=== PATIENT | female | born 1950 | race Hispanic/Latino ===

== ENCOUNTER 2017-07-21 14:13 | Emergency (ER) | payer SELFPAY ==
[2017-07-21 14:22] VITALS: BP 160/80; PULSE 88; RESP 18; TEMP 97.7; O2SAT 97
--- NOTE | 2017-07-21 15:37 | ED PDOC ---
Upper Extremity Pain/Injury Time Seen by Provider: 07/21/17 15:44 Chief Complaint (Nursing): Upper Extremity Problem/Injury History Per: Patient, Family (daughter) History/Exam Limitations: no limitations Onset/Duration Of Symptoms: Days Current Symptoms Are (Timing): Still Present Additional Complaint(s): Queenie Wadsworth, a 67 year old female, is brought into the ED by her daughter with an injury to her right hand. The patient states that she fell yesterday injuring her right arm. She reports that she was seen at urgent care where they put her arm in a soft cast and told her to come into the ED to consult with a doctor. PMD: FAMILY PROVIDER,NO Past Medical History Reviewed: Historical Data, Nursing Documentation, Vital Signs Vital Signs: Last Vital Signs Temp 97.7 F 07/21/17 14:19 Pulse 88 07/21/17 14:19 Resp 18 07/21/17 14:19 BP 160/80 H 07/21/17 14:19 Pulse Ox 97 07/21/17 14:19 - Medical History PMH: No Chronic Diseases - Surgical History Surgical History: Appendectomy - Family History Family History: States: Unknown Family Hx - Living Arrangements Living Arrangements: With Family - Social History Current smoker - smoking cessation education provided: No Ex-Smoker (has not smoked in the last 12 months): No Alcohol: None Drugs: Denies - Allergies Allergies/Adverse Reactions: Allergies Allergy/AdvReac Type Severity Reaction Status Date / Time No Known Allergies Allergy Verified 07/21/17 14:19 Review of Systems ROS Statement: Except As Marked, All Systems Reviewed And Found Negative Musculoskeletal: Positive for: Other (right hand injury) Physical Exam - Reviewed Nursing Documentation Reviewed: Yes Vital Signs Reviewed: Yes - Physical Exam Appears: Positive for: Non-toxic, No Acute Distress Head Exam: Positive for: ATRAUMATIC, NORMAL INSPECTION, NORMOCEPHALIC Skin: Positive for: Normal Color, Warm, Dry. Negative for: Rash Eye Exam: Positive for: Normal appearance Extremity: Positive for: Normal ROM (Full ROM of all fingers), Other (Normal color to fingers of right hand; moving all fingers of right hand.). Negative for: Tenderness, Deformity Neurologic/Psych: Positive for: Alert, Oriented - ECG O2 Sat by Pulse Oximetry: 97 (RA) Pulse Ox Interpretation: Normal Medical Decision Making Medical Decision Making: Initial Impression 67 y/o female presenting with injury to right arm Initial Plan: * Reevaluation 1530 Patient given the number of health spa manager service and advised to follow up in the ED if fingers turn blue or there is difficulty moving the fingers or increased swelling. pt understands instructions. Scribe Attestation Documented by Jocelynn Scruggs acting as a scribe for Ashlee Manuel PA-C. Scribe Attestation All medical record entries made by the Scribe were at my direction and personally dictated by me. I have reviewed the chart and agree that the record accurately reflects my personal performance of the history, physical exam, medical decision making, and the department course for this patient. I have also personally directed, reviewed, and agree with the discharge instructions and disposition. Disposition - Clinical Impression Clinical Impression: Hand injuries - Patient ED Disposition Is Patient to be Admitted: No Counseled Patient/Family Regarding: Studies Performed, Need For Followup - Disposition Referrals: [facility] [Outside] Disposition: Routine/Home Disposition Time: 15:30 Condition: STABLE Instructions: Wrist Injury (ED), Hand Sprain (ED) Forms: [facility] (Cam[place]onian) - POA Present On Arrival: None
== END 2017-07-21 15:28 | disposition home or self-care (01) ==
LOC: H.ER 14:13
DX: S49.91XA Unspecified injury of right shoulder and upper arm, initial encounter (principal); W19.XXXA Unspecified fall, initial encounter; Y92.89 Other specified places as the place of occurrence of the external cause